=== PATIENT | female | born 1995 | race Two or more races ===

== ENCOUNTER 2024-05-12 03:17 | Inpatient (IN) | payer OTHER, SELFPAY ==
[2024-05-12] VITALS (102 sets, daily range): BP systolic 0–143; BP diastolic 0–84; PULSE 61–102; RESP 16–17; TEMP 36.8–36.9; O2SAT 69–100; BMI 45.8
[2024-05-12 07:27] LABS: Basophils % (Auto) 0 % (0-2.5); Eosinophils % (Auto) 0 % (0-10); Hematocrit 38.6 % (36.0-46.0); Hemoglobin 13.7 g/dL (12.0-16.0); Immature Granulocytes % (Auto) 0 % (0-0); Immature Granulocytes Auto 0.03 Thou/mm3 (0.00-0.00); Lymphocytes # (Auto) 2.2 Thou/mm3 (1.0-4.8); Lymphocytes % (Auto) 21 % (10-50); Mean Corpuscular HGB Conc 35.5 g/dl (31.0-37.0); Mean Corpuscular Hemoglobin 32.2 pg (25.0-35.0); Mean Corpuscular Volume 91 fL (80-100); Monocytes # (Auto) 0.5 Thou/mm3 (0.0-0.8); Monocytes % (Auto) 5 % (0-12); Neutrophils # (Auto) 7.6 Thou/mm3 (1.8-7.7); Neutrophils % (Auto) 74 % (37-80); Nucleated Red Blood Cell % 0 /100 WBC (0); Platelet Count 201 Thou/mm3 (140-440); RDW Standard Deviation 44.4 fL (36.4-46.3); Red Blood Count 4.25 Miln/mm3 (4.00-5.20); White Blood Count 10.3 Thou/mm3 (3.6-11.0)
[2024-05-12 08:07] LABS: Syphilis Nonreactive (Nonreactive)
[2024-05-12 11:16] LABS: HIV (1&2) Antibody Rapid Non-Reactive
[2024-05-12] MEDS: OXYTOCIN in NS 30 units 30 UNIT/500 ML BAG IV (14:18)
[2024-05-12] MEDS: RINGERS LACTATED 1000 ML 1,000 ML 999 ML IV (23:05)
[2024-05-12] MEDS: fentaNYL CIT INJ 50 mCg/ML AMP 2ML 100 MCG IV (23:24)
[2024-05-13] VITALS (163 sets, daily range): BP systolic 0–135; BP diastolic 0–83; PULSE 66–122; RESP 16–19; TEMP 36.8–37.1; O2SAT 86–99
[2024-05-13] MEDS: RINGERS LACTATED 1000 ML 1,000 ML 125 ML IV (01:22)
[2024-05-13] MEDS: OXYTOCIN in NS 30 units 30 UNIT/500 ML BAG IV (01:53)
[2024-05-13 02:02] LABS: Hepatitis B Surface Antigen Non Reactive (Non React)
--- NOTE | 2024-05-13 05:38 | PD.LDHP ---
Documentation for date of: 05/13/24 OB Labor/Induct. HPI History of Present Illness : 1 Para: 0 Term pregnancies: 0 pregnancies: 0 Living children: 0 History of Abortions: Spontaneous and Elective: 0 History of Vaginal deliveries: 0 RADHA: 05/18/24 History of present illness: 29-year-old G1, P0 at 39 weeks 4 days who receives care at [facility] presented to labor and delivery triage with contractions and pressure. Patient was monitored for 2 to 3 hours and she made cervical change from 1 cm to 3-1/2 cm with 50% effacement, regular contractions every 2 to 3 minutes. Patient is being admitted in early labor. Patient had her records available through the patient portal on her phone and they were all reviewed and copies were scanned into her paper chart History of Present Adequate Care: Yes Review of Systems Review of Systems Systems Reviewed: All systems reviewed, normal except as documented Meds Home Medications and Allergies Home Medications ?Medication ?Instructions ?Recorded ?Confirmed ?Type prenat.vits,jean,tic-msiv-dulop 1 tab PO QDAY 05/12/24 05/12/24 History Allergies Allergy/AdvReac Type Severity Reaction Status Date / Time No Known Allergies Allergy Verified 05/12/24 03:29 OB Exam Physical Exam Vital signs: Temp Pulse Resp BP Pulse Ox 98.6 F 92 18 120/61 98 05/13/24 00:01 05/13/24 05:38 05/13/24 00:01 05/13/24 05:38 05/13/24 05:36 Constitutional Constitutional: no acute distress Routine HEENT Exam Head: Present normocephalic and atraumatic Eye: Present EOMI and PERRL ENT: Present mucous membranes moist Routine Neck Exam Neck: Present supple and trachea midline Routine Cardiovascular Exam Cardiovascular: Present RRR Routine Abdominal Exam Abdominal: Present soft and normoactive bowel sounds Detailed Labor and Delivery Exam Dilation (cm): 3 Effacement (%): 50 Cervix position: mid Baseline heart rate: 145 monitor accelerations: 15x15 monitor decelerations: None Routine Extremities Exam Extremities: Present full ROM Routine Skin Exam Skin: Present intact, dry and warm Routine Neurological Exam Neurological: Present alert, oriented X3 and CN II-XII intact Routine Psychiatric Exam Psychiatric: Present normal affect and normal thought process OB Results Labs 05/12/24 06:40 Labs: Short CBC 05/12/24 Range/Units 06:40 WBC 10.3 (3.6-11.0) Thou/mm3 Hgb 13.7 (12.0-16.0) g/dL Hct 38.6 (36.0-46.0) % Plt Count 201 (140-440) Thou/mm3 OB Assessment & Plan Assessment and Plan (1) First stage of labor: Status: Acute Assessment and plan: Admit to Inpatient to labor and Delivery GBS: neg Vital Signs per protocol External monitor/Tocometry Activity: Bedrest w/bathroom privileges Ambulate in Latent Labor with intact membrane Intake and Urine Output Monitoring Urine catheter as needed Diet: As tolerated in latent labor Ice Chips in active labor Intravenous Fluids: Lactated Ringers +/- 5% Dextrose at 125 cc/hour Labs Complete Blood Count Blood Type and Antibody Screen (Indirect Anthony) RPR COVID-19 RNA Plan: Oxytocin for augmentation as needed Estimated weight 7-1/2 pounds Anticipate vaginal delivery. Pain management as per protocol, epidural if desired.
--- NOTE | 2024-05-13 08:39 | OBDSUM_ITS ---
Data ([place]) Data : 1 Para: 0 Term: 0 : 0 : 0 Delivery Data ([facility]) Labor Data ROM Date: 05/13/24 ROM Time: 05:19 Rupture Type: AROM Amniotic Fluid: Clear Delivery Data Labor Onset Stage 1 Date: 05/12/24 Labor Onset Stage 1 Time: 06:00 Labor Onset Stage 2 Date: 05/13/24 Labor Onset Stage 2 Time: 07:40 Delivery Date: 05/13/24 Delivery Time: 07:46 Placenta Delivery Date: 05/13/24 Placenta Delivery Time: 07:50 Delivered by: Krzysztof Navarrete Delivery nurse: Bailey Lima Delivery Method Delivery: Vaginal Delivery Type: Spontaneous Anesthesia Type Primary Anesthesia: Epidural EBL Estimated blood loss (ml): 300 [place] Data ([facility]) [place] Data Infant Gender: Female Infant Weight Grams: 3310 1 Minute Total: 8 5 Minute Total: 9 Additional Comments Additional comments: Patient pushed actively and delivered from MARIE. Shoulders and pelvis delivered atraumatically. Placenta delivered intact. Bladder emptied with straight cath. First-degree laceration repaired with 2-0 Vicryl Vagina swept, no bleeding noted
[2024-05-13] MEDS: BENZO/LANO/ALOE (Dermoplast) 60 GM CAN 1 SPRAY TOP (09:59)
[2024-05-14 04:00] VITALS: BP 110/73; PULSE 88; RESP 20; TEMP 36.7; O2SAT 97
[2024-05-14 05:47] LABS: Basophils % (Auto) 0 % (0-2.5); Eosinophils # (Auto) 0.1 Thou/mm3 (0.0-0.5); Eosinophils % (Auto) 1 % (0-10); Hematocrit 31.9 % (36.0-46.0); Hemoglobin 11.1 g/dL (12.0-16.0); Immature Granulocytes % (Auto) 1 % (0-0); Immature Granulocytes Auto 0.07 Thou/mm3 (0.00-0.00); Lymphocytes # (Auto) 3.3 Thou/mm3 (1.0-4.8); Lymphocytes % (Auto) 29 % (10-50); Mean Corpuscular HGB Conc 34.8 g/dl (31.0-37.0); Mean Corpuscular Hemoglobin 32.8 pg (25.0-35.0); Mean Corpuscular Volume 94 fL (80-100); Monocytes # (Auto) 0.6 Thou/mm3 (0.0-0.8); Monocytes % (Auto) 5 % (0-12); Neutrophils # (Auto) 7.3 Thou/mm3 (1.8-7.7); Neutrophils % (Auto) 64 % (37-80); Nucleated Red Blood Cell % 0 /100 WBC (0); Platelet Count 191 Thou/mm3 (140-440); RDW Standard Deviation 47.6 fL (36.4-46.3); Red Blood Count 3.38 Miln/mm3 (4.00-5.20); White Blood Count 11.4 Thou/mm3 (3.6-11.0)
[2024-05-14 07:50] VITALS: BP 105/68; PULSE 84; RESP 18; TEMP 36.7; O2SAT 97
--- NOTE | 2024-05-14 08:36 | PD.LDPPPRG ---
Subjective Subjective Interval history: Patient at bedside. Afebrile, tolerating p.o., ambulating, voiding Exam Vital Signs Temp Pulse Resp BP Pulse Ox O2 Del Method 98.0 F 88 20 110/73 97 Room Air 05/14/24 04:00 05/14/24 04:00 05/14/24 04:00 05/14/24 04:00 05/14/24 04:00 05/14/24 04:00 Routine Abdominal Exam Comments: Soft, appropriately tender. Uterus firm below the umbilicus Routine Exam Comments: Lochia similar to menses Routine Extremities Exam Comments: Homans' sign negative Objective Labs 05/14/24 04:44 Labs: Laboratory Results - last 24 hr 05/14/24 04:44 WBC 11.4 H RBC 3.38 L Hgb 11.1 L D Hct 31.9 L MCV 94 MCH 32.8 MCHC 34.8 RDW Std Deviation 47.6 H Plt Count 191 Neut % (Auto) 64 Lymph % (Auto) 29 [place] % (Auto) 5 Eos % (Auto) 1 Baso % (Auto) 0 Neut # (Auto) 7.3 Lymph # (Auto) 3.3 [place] # (Auto) 0.6 Eos # (Auto) 0.1 Baso # (Auto) 0.0 Immature Gran # (Auto) 0.07 H Absolute Nucleated RBC 0.00 Immature Gran % 1 H Nucleated RBC % 0 Assessment & Plan Problem List (1) First stage of labor: Status: Acute Assessment Comment Assessment comment: 29-year-old status post at term. day Plan Comment Plan Comment: Routine care. DC home if stable Time Spent With Patient Time: Total time spent is greater than 50% in coordination of care (as documented) at patient's floor/unit and/or counseling patient:
--- NOTE | 2024-05-14 08:37 | ESDS_ITS ---
DS: Providers Provider Date of admission: 05/12/24 06:06 Primary care physician: Physician No Primary/Family Admitting Provider: Carson Rodas MD Attending Provider on Admission: Krzysztof Navarrete MD Consults: 05/13/24 07:59 Referral Routine Comment: Attending Provider on DC: Krzysztof Navarrete MD Discharging Provider: Krzysztof Navarrete MD DS: Diagnosis Problem List Completed Was Problem List Reviewed/Reconciled?: Yes Summary/Hosp Course Brief History: 29-year-old G1, P1 who came in labor and delivery via . Her postop course was unremarkable and on day 1 she was discharged home Peripartum Data Delivery Method: Normal Vaginal Delivery Time Spent with Patient Time attestation: Total time spent providing and/or coordinating discharge services: Exam Vital Signs Temp Pulse Resp BP Pulse Ox O2 Del Method 98.0 F 88 20 110/73 97 Room Air 05/14/24 04:00 05/14/24 04:00 05/14/24 04:00 05/14/24 04:00 05/14/24 04:00 05/14/24 04:00 Discharge Plan Plan Patient Disposition: HOME (Self Care) Prescriptions/Referrals Prescriptions/Med Rec: No Action #2 Tablet 1 tab PO QDAY Referrals: Krzysztof Navarrete MD [Physician] - (3-4 weeks) No Primary/Family,Physician [Primary Care Provider] - Patient/Caregiver Discharge Instructions Education Materials: After a Vaginal Print Language: Portuguese Stand Alone Forms: Kailyn Award Info., Patient Portal Info Letter Discharge Order Discharge Orders: Discharge (Routine); Ordered 05/14/24 Ordered By: Krzysztof Navarrete Planned Discharge Date 05/14/24
--- NOTE | 2024-05-14 08:44 | PD.LDDS ---
DS: Providers Provider Date of admission: 05/12/24 06:06 Primary care physician: Physician No Primary/Family Admitting Provider: Carson Rodas MD Attending Provider on Admission: Krzysztof Navarrete MD Consults: 05/13/24 07:59 Referral Routine Comment: Attending Provider on DC: Krzysztof Navarrete MD Discharging Provider: Krzysztof Navarrete MD DS: Diagnosis Problem List Completed Was Problem List Reviewed/Reconciled?: Yes Summary/Hosp Course Brief History: 29-year-old G1, P1 who came in labor and delivery via . Her postop course was unremarkable and on day 1 she was discharged home Peripartum Data Delivery Method: Normal Vaginal Delivery Time Spent with Patient Time attestation: Total time spent providing and/or coordinating discharge services: Exam Vital Signs Temp Pulse Resp BP Pulse Ox O2 Del Method 98.0 F 88 20 110/73 97 Room Air 05/14/24 04:00 05/14/24 04:00 05/14/24 04:00 05/14/24 04:00 05/14/24 04:00 05/14/24 04:00 Discharge Plan Plan Patient Disposition: HOME (Self Care) Prescriptions/Referrals Prescriptions/Med Rec: New ibuprofen 400 mg Tablet 800 mg PO Q8HR 7 Days Qty: 21 0RF No Action #2 Tablet 1 tab PO QDAY Referrals: Krzysztof Navarrete MD [Physician] - (3-4 weeks) No Primary/Family,Physician [Primary Care Provider] - Patient/Caregiver Discharge Instructions Education Materials: After a Vaginal Print Language: Cambodian Stand Alone Forms: Kailyn Award Info., Patient Portal Info Letter Discharge Order Discharge Orders: Discharge (Routine); Ordered 05/14/24 Ordered By: Krzysztof Navarrete Planned Discharge Date 05/14/24
[2024-05-14 12:03] VITALS: BP 125/80; PULSE 80; RESP 18; TEMP 36.9; O2SAT 97
== END 2024-05-14 14:57 | disposition home or self-care (01) | DRG 807 ==
LOC: S4SX 05-13 05:38 → S4NX 05-13 10:06
PROVIDERS: Admitting Provider Obstetrics & Gynecology; Visit Provider Obstetrics & Gynecology
DX: O70.0 First degree perineal laceration during delivery (principal); Z37.0 Single live birth; Z3A.39 39 weeks gestation of pregnancy
CPT/HCPCS: 36415; 59025; 59409; 85025; 86703; 86780; 86850; 86900; 86901; 87340; 94762; J2590; J2795; J3010; J7120; A9270